=== PATIENT | female | born 1975 | race African-American/Black ===

== ENCOUNTER 2016-09-23 22:35 | Emergency (ER) | payer SELFPAY ==
[~2016-09-23] VITALS: Ht 172.7 cm; Wt 80.0 kg
[2016-09-23 22:45] VITALS: BP 164/77; PULSE 90; RESP 16; TEMP 98.6; O2SAT 99
[2016-09-23] MEDS ORDERED: ONDANSETRON HCL 4 MG/2 ML VIAL ONE (22:55)
--- NOTE | 2016-09-23 22:56 | PD ---
HPI . Alcohol/drug intoxication Chief Complaint: Alcohol/Drug Intoxication Time Seen by Provider: 22:55 Travel History International Travel<30 days: No Contact w/Intl Traveler<30days: No Traveled to known affect area: No History of Present Illness HPI 41-year-old female with hypertension and borderline diabetes brought in by ambulance secondary alcohol/drug intoxication. Apparently patient was smoking marijuana with several family members and started to hallucinate. She now truly believes that she is and that everyone surrounding here is also . She keeps telling me that she feels she needs IV fluids to keep her alive. Upon questioning, she admits to a burning sensation in her chest. She also tells me that she is short of breath. Her vital signs are all within normal limits. She tells me that she usually does not use marijuana. She denies any alcohol ingestion. She is not certain if she took any other drugs. She denies any suicidal or homicidal ideation. She reports being tired. She denies any chance of . She is visiting from [place] because her son is in some sort of dance competition. Patient's sister is here and reports that patient also has a history of high cholesterol for which she takes medication and the name is unknown. She also takes Ativan 0.5 mg regularly. PFSH Past Medical History Medical History: Unable to Obtain Immunizations Current: Yes ?: Unknown LMP: IRREG : 7 Para: 2 Tubal Ligation: Yes Past Surgical History Surgical History: Unable to Obtain Section: Yes Social History Alcohol Use: Yes Tobacco Use: No Substance Use: Yes Allergies-Medications (Allergen,Severity, Reaction): Coded Allergies: Penicillin (Unverified Allergy, Mild, 09/23/16) Reported Meds & Prescriptions Reported Meds & Active Scripts Active Reported [Chol Med] Lorazepam 0.5 Mg Tab 0.5 Mg PO Q6H PRN Review of Systems General / Constitutional: No: Fever Eyes: No: Visual changes HENT: No: Headaches Cardiovascular: Positive: Chest Pain or Discomfort Respiratory: Positive: Shortness of Breath Gastrointestinal: No: Nausea, Vomiting, Diarrhea, Abdominal Pain Genitourinary: No: Dysuria Musculoskeletal: No: Pain Skin: No Rash Neurologic: No: Weakness Psychiatric: No: Depression Endocrine: No: Polydipsia Hematologic/Lymphatic: No: Easy Bruising Physical Exam Narrative GENERAL: AAO x 3, no acute distress, Well-nourished, well-developed patient. SKIN: Warm and dry. No visible rashes or bruising. HEAD: Normocephalic and atraumatic. EYES: No scleral icterus. No injection or drainage. EOM intact, PERRLA ENT: No nasal drainage noted. Mucous membranes pink. Airway patent. Slightly dry mucous membranes. NECK: Supple, trachea midline. No JVD. CARDIOVASCULAR: Regular rate and rhythm without murmurs, gallops, or rubs. RESPIRATORY: Breath sounds equal bilaterally. No accessory muscle use. No rhonchi or rales. GASTROINTESTINAL: Abdomen soft, non-tender, nondistended. No rebound or guarding. EXTREMITIES: No cyanosis or edema. BACK: Nontender without obvious deformity. No CVA tenderness. NEURO: CN II-12 intact, ceramic chemist strength normal b/l, UE PSYCH: AAO x 3, hallucinating and believe she is , but aware of her surroundings Data Data Last Documented VS Vital Signs Date Time Temp Pulse Resp B/P Pulse Ox O2 Delivery O2 Flow Rate FiO2 09/24/16 02:19 83 16 108/70 99 Room Air 09/23/16 22:45 98.6 Orders Ondansetron Inj (Zofran Inj) (09/23/16 23:00) Complete Blood Count With Diff (09/23/16 22:54) Comprehensive Metabolic Panel (09/23/16 22:54) Urinalysis - C+S If Indicated (09/23/16 22:54) Ed Urine Pregnancytest Poc (09/23/16 22:54) Drug Screen, Random Urine (09/23/16 22:54) Alcohol (Ethanol) (09/23/16 22:54) Salicylates (Aspirin) (09/23/16 22:54) Tylenol (Acetaminophen) (09/23/16 22:54) Ondansetron Inj (Zofran Inj) (09/23/16 22:55) Electrocardiogram (09/23/16 22:56) Ckmb (Isoenzyme) Profile (09/23/16 22:56) Magnesium (Mg) (09/23/16 22:56) Troponin I (09/23/16 22:56) Chest, Single Ap (09/23/16 22:56) Ecg Monitoring (09/23/16 22:56) Bilateral Bp Monitoring (09/23/16 22:56) Iv Access Insert/Monitor (09/23/16 22:56) Oximetry (09/23/16 22:56) Oxygen Administration (09/23/16 22:56) Sodium Chloride 0.9% Flush (Ns Flush) (09/23/16 23:00) Sodium Chlor 0.9% 1000 Ml Inj (Ns 1000 M (09/23/16 23:15) Potassium Chloride Eff (K-Lyte Cl Eff) (09/24/16 01:15) CKMB (09/23/16 23:00) CKMB% (09/23/16 23:00) Labs Laboratory Tests Test 09/23/16 23:00 White Blood Count 10.1 TH/MM3 Red Blood Count 3.69 MIL/MM3 Hemoglobin 11.2 GM/DL Hematocrit 32.8 % Mean Corpuscular Volume 89.0 FL Mean Corpuscular Hemoglobin 30.2 PG Mean Corpuscular Hemoglobin 34.0 % Concent Red Cell Distribution Width 13.4 % Platelet Count 273 TH/MM3 Mean Platelet Volume 8.5 FL Neutrophils (%) (Auto) 49.8 % Lymphocytes (%) (Auto) 39.9 % Monocytes (%) (Auto) 8.5 % Eosinophils (%) (Auto) 1.6 % Basophils (%) (Auto) 0.2 % Neutrophils # (Auto) 5.0 TH/MM3 Lymphocytes # (Auto) 4.0 TH/MM3 Monocytes # (Auto) 0.9 TH/MM3 Eosinophils # (Auto) 0.2 TH/MM3 Basophils # (Auto) 0.0 TH/MM3 CBC Comment DIFF FINAL Differential Comment Sodium Level 141 MEQ/L Potassium Level 3.2 MEQ/L Chloride Level 105 MEQ/L Carbon Dioxide Level 24.9 MEQ/L Anion Gap 11 MEQ/L Blood Urea Nitrogen 5 MG/DL Creatinine 0.87 MG/DL Estimat Glomerular Filtration 71 ML/MIN Rate Random Glucose 161 MG/DL Calcium Level 8.6 MG/DL Total Bilirubin 0.2 MG/DL Aspartate Amino Transf 17 U/L (AST/SGOT) Alanine Aminotransferase 24 U/L (ALT/SGPT) Alkaline Phosphatase 89 U/L Total Protein 8.0 GM/DL Albumin 3.7 GM/DL Salicylates Level LESS THAN 1.7 MG/DL Acetaminophen Level LESS THAN 2.0 MCG/ML Ethyl Alcohol Level LESS THAN 3 MG/DL Magnesium Level 2.0 MG/DL Total Creatine Kinase 205 U/L Creatine Kinase MB 0.6 NG/ML Creatine Kinase MB % 0.3 % Troponin I LESS THAN 0.02 NG/ML MDM Medical Decision Making Medical Screen Exam Complete: Yes Emergency Medical Condition: Yes Medical Record Reviewed: Yes Differential Diagnosis Drug induced mood disorder, polysubstance abuse, acute psychosis Narrative Course 41-year-old female here with marijuana usage. It appears the patient's marijuana may have been laced with some additional substance. At this time it is uncertain. IV access has been obtained, labs and imaging have been ordered. She does report some chest pain and shortness of breath, therefore chest x-ray and cardiac enzymes have been ordered. After my examination, the nurse came out and advised me that patient had vomited. I have provided her with IV Zofran. I will also start her on some IV fluids. Case has been discussed with Dr. Duff, who will resume care of the patient. He will determine her disposition. Condition: Stable Bouchra Enriquez Sep 23, 2016 22:56
[2016-09-23] MEDS ORDERED: SODIUM CHLORIDE 0.9% FLUSH 10 ML FLUSH IVF PRN (23:00)
[2016-09-23] MEDS ORDERED: LORA-373 PO (23:00)
[2016-09-23] MEDS ORDERED: CHOL MED (23:00)
[2016-09-23] MEDS ORDERED: ONDANSETRON HCL 4 MG/2 ML VIAL IV PUSH ONE (23:00)
[2016-09-23] MEDS ORDERED: SODIUM CHLOR 0.9% 1000 ML INJ 1,000 ML IV ONE (23:15)
--- NOTE | 2016-09-23 23:26 | RADRPT ---
EXAM DATE/TIME: 09/23/2016 23:14 [facility] COMPARISON: No previous studies available for comparison. INDICATIONS : Burning in the chest. MEDICAL HISTORY : None. SURGICAL HISTORY : None. ENCOUNTER: Initial ACUITY: 1 day PAIN SCORE: 3/10 LOCATION: Bilateral chest FINDINGS: A single view of the chest demonstrates the lungs to be symmetrically aerated without evidence of mas s, infiltrate or effusion. The cardiomediastinal contours are unremarkable. Heart is mildly promine nt. Osseous structures are intact. CONCLUSION: Cardiomegaly. No acute disease. Arnold Ocampo MD on September 23, 2016 at 23:23 Board Certified Radiologist. This report was verified electronically.
--- NOTE | 2016-09-23 23:27 | PD ---
Physical Exam Date Seen by Provider: Sep 23, 2016 Time Seen by Provider: 23:25 Narrative The patient is a 41-year-old [place] female who was initially evaluated by the mid-level provider, please refer to initial history, physical, diagnostic evaluation, and treatment modality plan. The patient was signed out at 8 p.m. with laboratory evaluation and repeat evaluation of the patient's symptoms pending. Data Data Last Documented VS Vital Signs Date Time Temp Pulse Resp B/P Pulse Ox O2 Delivery O2 Flow Rate FiO2 09/23/16 23:52 80 16 109/76 99 Room Air 09/23/16 22:45 98.6 Orders Ondansetron Inj (Zofran Inj) (09/23/16 23:00) Complete Blood Count With Diff (09/23/16 22:54) Comprehensive Metabolic Panel (09/23/16 22:54) Urinalysis - C+S If Indicated (09/23/16 22:54) Ed Urine Pregnancytest Poc (09/23/16 22:54) Drug Screen, Random Urine (09/23/16 22:54) Alcohol (Ethanol) (09/23/16 22:54) Salicylates (Aspirin) (09/23/16 22:54) Tylenol (Acetaminophen) (09/23/16 22:54) Ondansetron Inj (Zofran Inj) (09/23/16 22:55) Electrocardiogram (09/23/16 22:56) Ckmb (Isoenzyme) Profile (09/23/16 22:56) Magnesium (Mg) (09/23/16 22:56) Prothrombin Time / Inr (Pt) (09/23/16 22:56) Act Partial Throm Time (Ptt) (09/23/16 22:56) Troponin I (09/23/16 22:56) Chest, Single Ap (09/23/16 22:56) Ecg Monitoring (09/23/16 22:56) Bilateral Bp Monitoring (09/23/16 22:56) Iv Access Insert/Monitor (09/23/16 22:56) Oximetry (09/23/16 22:56) Oxygen Administration (09/23/16 22:56) Sodium Chloride 0.9% Flush (Ns Flush) (09/23/16 23:00) Sodium Chlor 0.9% 1000 Ml Inj (Ns 1000 M (09/23/16 23:15) Labs Laboratory Tests Test 09/23/16 23:00 White Blood Count 10.1 TH/MM3 Red Blood Count 3.69 MIL/MM3 Hemoglobin 11.2 GM/DL Hematocrit 32.8 % Mean Corpuscular Volume 89.0 FL Mean Corpuscular Hemoglobin 30.2 PG Mean Corpuscular Hemoglobin 34.0 % Concent Red Cell Distribution Width 13.4 % Platelet Count 273 TH/MM3 Mean Platelet Volume 8.5 FL Neutrophils (%) (Auto) 49.8 % Lymphocytes (%) (Auto) 39.9 % Monocytes (%) (Auto) 8.5 % Eosinophils (%) (Auto) 1.6 % Basophils (%) (Auto) 0.2 % Neutrophils # (Auto) 5.0 TH/MM3 Lymphocytes # (Auto) 4.0 TH/MM3 Monocytes # (Auto) 0.9 TH/MM3 Eosinophils # (Auto) 0.2 TH/MM3 Basophils # (Auto) 0.0 TH/MM3 CBC Comment DIFF FINAL Differential Comment Sodium Level 141 MEQ/L Potassium Level 3.2 MEQ/L Chloride Level 105 MEQ/L Carbon Dioxide Level 24.9 MEQ/L Anion Gap 11 MEQ/L Blood Urea Nitrogen 5 MG/DL Creatinine 0.87 MG/DL Estimat Glomerular Filtration 71 ML/MIN Rate Random Glucose 161 MG/DL Calcium Level 8.6 MG/DL Total Bilirubin 0.2 MG/DL Aspartate Amino Transf 17 U/L (AST/SGOT) Alanine Aminotransferase 24 U/L (ALT/SGPT) Alkaline Phosphatase 89 U/L Total Protein 8.0 GM/DL Albumin 3.7 GM/DL Salicylates Level LESS THAN 1.7 MG/DL Acetaminophen Level LESS THAN 2.0 MCG/ML Ethyl Alcohol Level LESS THAN 3 MG/DL [facility] Medical Record Reviewed: Yes Supervised Visit with ELISSA: Yes Interpretation(s) EKG reveals normal sinus rhythm with a rate of 79. No ischemic changes or ectopy noted. Last Impressions Chest X-Ray 09/23/16 9817 Signed Impressions: Service Date/Time: Sunday, September 23, 2016 23:14 - CONCLUSION: Cardiomegaly. No acute disease. Arnold Ocampo MD Laboratory Tests Test 09/23/16 23:00 White Blood Count 10.1 TH/MM3 Red Blood Count 3.69 MIL/MM3 Hemoglobin 11.2 GM/DL Hematocrit 32.8 % Mean Corpuscular Volume 89.0 FL Mean Corpuscular Hemoglobin 30.2 PG Mean Corpuscular Hemoglobin 34.0 % Concent Red Cell Distribution Width 13.4 % Platelet Count 273 TH/MM3 Mean Platelet Volume 8.5 FL Neutrophils (%) (Auto) 49.8 % Lymphocytes (%) (Auto) 39.9 % Monocytes (%) (Auto) 8.5 % Eosinophils (%) (Auto) 1.6 % Basophils (%) (Auto) 0.2 % Neutrophils # (Auto) 5.0 TH/MM3 Lymphocytes # (Auto) 4.0 TH/MM3 Monocytes # (Auto) 0.9 TH/MM3 Eosinophils # (Auto) 0.2 TH/MM3 Basophils # (Auto) 0.0 TH/MM3 CBC Comment DIFF FINAL Differential Comment Sodium Level 141 MEQ/L Potassium Level 3.2 MEQ/L Chloride Level 105 MEQ/L Carbon Dioxide Level 24.9 MEQ/L Anion Gap 11 MEQ/L Blood Urea Nitrogen 5 MG/DL Creatinine 0.87 MG/DL Estimat Glomerular Filtration 71 ML/MIN Rate Random Glucose 161 MG/DL Calcium Level 8.6 MG/DL Total Bilirubin 0.2 MG/DL Aspartate Amino Transf 17 U/L (AST/SGOT) Alanine Aminotransferase 24 U/L (ALT/SGPT) Alkaline Phosphatase 89 U/L Total Protein 8.0 GM/DL Albumin 3.7 GM/DL Salicylates Level LESS THAN 1.7 MG/DL Acetaminophen Level LESS THAN 2.0 MCG/ML Ethyl Alcohol Level LESS THAN 3 MG/DL Differential Diagnosis Differential diagnosis includes polysubstance abuse, substance ingestion, illicit drug use, psychosis, alcohol intoxication, pneumonitis, aspiration. Narrative Course I, Dr. Duff, have reviewed the advance practice practitioner's documentation and am in agreement, met with the patient face to face, made the diagnosis, and the medical decision making was done by me. *My assessment and Findings: The patient was initially evaluated by the mid- level provider, please refer to initial history, physical, diagnostic evaluation , and treatment modality plan. Patient admits to smoking marijuana earlier tonight, unknown if it was laced with any substances. The patient complains of some intermittent chest pain and significant thirst. The patient states he was marijuana, she does not think it was laced with anything such as K2 or cocaine. The patient then stated she did not smoke marijuana, she ingested a gummy bear that may have had THC. The patient was reevaluated at 1:05 AM, she was back to baseline. Labs were noted, potassium was 3.2, was replaced orally. Patient will be discharged home with family. Diagnosis Primary Impression: Ingested substance, unknown drug Qualified Code: T50.901A - Ingested substance, unknown drug, accidental or unintentional, initial encounter Additional Impression: Hypokalemia Patient Instructions: General Instructions Additional Instruction: Tonight use illicit drugs. Follow-up with her primary physician. Return if symptoms worsen or progress. Disposition: DISCHARGE HOME Condition: Stable Dayron Duff MD Sep 23, 2016 23:27
[2016-09-23 23:33] LABS: BASOPHIL % 0.2 % (0.0-2.0); EOSINOPHIL # 0.2 TH/MM3 (0-0.4); EOSINOPHIL % 1.6 % (0.0-4.0); HEMATOCRIT 32.8 % (35.0-46.0); HEMO FLAGS DIFF FINAL; LYMPH % 39.9 % (9.0-44.0); MEAN CORPUSCULAR HEMOGLOBIN 30.2 PG (27.0-34.0); MONO % 8.5 % (0.0-8.0); NEUT % 49.8 % (16.0-70.0); PLATELET COUNT 273 TH/MM3 (150-450); RED BLOOD COUNT 3.69 MIL/MM3 (4.00-5.30); RED CELL DISTRIBUTION WIDTH 13.4 % (11.6-17.2); WHITE BLOOD COUNT 10.1 TH/MM3 (4.0-11.0)
[2016-09-23 23:44] LABS: ANION GAP 11 MEQ/L (5-15)
[2016-09-23 23:52] VITALS: BP 109/76; PULSE 80; RESP 16; O2SAT 99
[2016-09-23 23:52] LABS: ACETAMINOPHEN LESS THAN 2.0 MCG/ML (10.0-30.0); ALKALINE PHOSPHATASE 89 U/L (45-117); ALT (GPT) 24 U/L (10-53); AST (GOT) 17 U/L (15-37); BICARBONATE 24.9 MEQ/L (21.0-32.0); BLOOD UREA NITROGEN 5 MG/DL (7-18); CHLORIDE 105 MEQ/L (98-107); GLOMERULAR FILTRATION RATE 71 ML/MIN (>89); POTASSIUM 3.2 MEQ/L (3.5-5.1); SODIUM (NA) 141 MEQ/L (136-145); TOTAL BILIRUBIN ADULT 0.2 MG/DL (0.2-1.0)
[2016-09-24] MEDS ORDERED: POTASSIUM CHLORIDE 25 MEQ EFFERVESCENT TAB PO ONE (01:15)
[2016-09-24 02:19] VITALS: BP 108/70; PULSE 83; RESP 16; O2SAT 99
[2016-09-24 07:44] LABS: CREATINE KINASE 205 U/L (26-192)
[2016-09-24 07:56] LABS: CKMB 0.6 NG/ML (0.5-3.6)
--- NOTE | 2016-09-24 11:49 | EKG ---
Date Performed: 09/23/2016 Time Performed: 23:23:37 PTAGE: 41 years EKG: Sinus rhythm NORMAL ECG NO PREVIOUS TRACING DOCTOR: Kunal Pickett Interpretating Date/Time 09/24/2016 11:47:37
== END 2016-09-24 02:30 | disposition home or self-care (01) ==
LOC: NEPC 22:35
DX: F12.10 Cannabis abuse, uncomplicated (principal); R07.9 Chest pain, unspecified; R06.02 Shortness of breath; R11.10 Vomiting, unspecified; E78.00 Pure hypercholesterolemia, unspecified; E87.6 Hypokalemia; Z88.0 Allergy status to penicillin
CPT/HCPCS: 71010; 80053; 80307; 82550; 82552; 83735; 84484; 84703; 85025; 93005; 96374; 99285; J2405; J7030